=== PATIENT | female | born 1985 | race Caucasian/White ===

== ENCOUNTER 2018-11-04 06:47 | Inpatient (IN) | payer BC ==
[~2018-11-04] VITALS: Ht 170.2 cm; Wt 111.8 kg
[2018-11-04] VITALS (51 sets, daily range): BP systolic 85–148; BP diastolic 50–84; PULSE 61–129; TEMP 98.3–99.2
[~2018-11-04 06:47] MED LIST: COLACE 100100 MG/CAP PO; MOTRIN 600600 MG/TAB NG; PERCOCET 325 MG1 TA2 PO; PRENATAL VITAMI1 TA5 PO
--- NOTE | 2018-11-04 07:39 | NUR ---
[id number] PT ARRIVES AMB FOR INDCUTION OF LABOR. GOWN ON TAND TO BED. POC DISCUSSED AND ASSESSMENT STARTED. 0728 ASSESSMENT COMPLETED AND IV STARTED.
[2018-11-04 08:10] LABS: BASO # 0.1 (0.0-0.2); BASO % 0.5 % (0.0-2.0); EOS # 0.2 (0.0-0.7); GRAN # 7.8 (1.4-6.5); GRAN % 73.5 % (42.2-75.2); HEMOGLOBIN 11.6 g/dl (12.5-16.0); LYMPH # 1.7 (1.2-3.4); LYMPH % 15.7 % (20.0-51.0); MEAN CELL VOLUME 81 fl (80.0-100.0); MEAN CORPUSCULAR HEMOGLOBIN 27 pg (27.0-31.0); MEAN CORPUSCULAR HGB CONC 34 g/dl (33.0-37.0); MEAN PLATELET VOLUME 9.2 fl (7.4-10.4); MONO # 0.8 (0.1-0.6); MONO % 7.7 % (1.7-9.3); PLATELET COUNT 228 K/mm3 (130-400); RED BLOOD COUNT 4.25 M/mm3 (4.10-5.30); REDCELL DISTRIBUTION WIDTH-CV 13.5 % (11.5-14.5)
[2018-11-04 08:11] LABS: HEMATOCRIT 34.6 % (37.0-47.0)
--- NOTE | 2018-11-04 08:26 | NUR ---
0800 PITOCIN STARTED VIA PUMP AND PROTOCOL. PT VERBALIZES UNDERSTANDING OF PORCESS
--- NOTE | 2018-11-04 08:27 | NUR ---
0815 WATCHING TV WITH SPOUSE. DENIES NEEDS OR PAIN.
--- NOTE | 2018-11-04 09:03 | NUR ---
0834 DR FISHER HERE AND AROM PERFOMRED. PT TOERATED FAIRLY WELL.
--- NOTE | 2018-11-04 10:37 | NUR ---
1000 ASSSITED TO BR AND VOIDS CLEAR URINE. PITOCIN INCREASED TO 10 mU/MIN
--- NOTE | 2018-11-04 12:17 | NUR ---
1045 PT MORE UNCOMFORTABLE BUT DENIES NEEDS. JELLO SNACK PROVIDED.
--- NOTE | 2018-11-04 12:21 | NUR ---
1120 PT REQUESTING EPIDURAL PLACEMENT. SVE SHOWS CHANGE TO 3 CM AND CONTINUING TO LEAK CLEAR FLUID. 1125 ASSISTED TO BR TO VOID. LARD REFINER NOTIFIED OF PT REQUEST AND IVF WIDE OPEN FOR BOLUS.
--- NOTE | 2018-11-04 12:23 | NUR ---
1135 Susan PAULINO IN ROOM AND PT ALREADY POSITIONED FOR EPIDURAL. 1140 SINGLE SHOT GIVEN BY BOILER OR ENGINE OPERATOR. 1145 PT REPOSIIONED IN BED WITH PILLOW UNDER RT HIP. VERBALIZES UNDERSTANDING OF EXPECTIATIONS OF EPIDURAL.
--- NOTE | 2018-11-04 12:55 | NUR ---
1200 MORE COMFORTABLE WITH CONTRACTIONS.
--- NOTE | 2018-11-04 12:56 | NUR ---
1205 LIGHT DIMMED AND ENC TO SLEEP IF ABLE.
--- NOTE | 2018-11-04 12:58 | NUR ---
1225 PT COMPLAINS OF BEING LIGHTHEADED AND NAUSEATED. BP DOWN 1230 EPHEDRINE 1MG IVP GIVEN AND LR #2 HUNG AND CONTINUES WIDED OPEN.
--- NOTE | 2018-11-04 13:07 | NUR ---
1245 FEELING BETTER AND BP IMPROVED.
--- NOTE | 2018-11-04 14:01 | NUR ---
1305 MORALES PLACED EASILY AND TOLERATED WELL BY PT. 1315 PITOCIN INCREASED TO 16mU/MIN.
--- NOTE | 2018-11-04 15:09 | NUR ---
1430 DR FISHER IN TO EXAM PT. MINIMAL CHANGE FROM LAST EXAM. PEANUT BALL PLACED AND PT REPOSITIONED TO RL SIDE.
--- NOTE | 2018-11-04 15:11 | NUR ---
1450 EMESIS IN TRASH CAN. PITOCIN INCREASED TO 20mU/MIN.
--- NOTE | 2018-11-04 16:45 | NUR ---
1525 HAVING WHAT APPEARS TO BE LATE DECELS. REPOSITIONED IN BED WITH PEANUT BALL IN PLACE.
--- NOTE | 2018-11-04 16:50 | NUR ---
1535 LATES CONTINUE, PITOCIN OFF, O2 ON AND IVF INCREASED. 1545 DR FISHER AWARE OF FM STRIP AND INTERVENTIONS.
--- NOTE | 2018-11-04 17:03 | NUR ---
1615 FHR IMPROVMENT CONTINUES. O2 OFF, PITOCIN RESTARED AT 10mU.MIN PER VERBAL ORDER FROM DR FISHER.
--- NOTE | 2018-11-04 17:14 | NUR ---
1650 FEELING PRESSURE AND SVE SHOWS PT NOW 7CM BUT STILL ABOUT -2 STATION AND 50% EFFACED. 1700 DR FISHER NOTIFIED OF PT PROGRESS AND STATES IS HEADED TO HOSPITAL.
--- NOTE | 2018-11-04 18:41 | NUR ---
1736 SVE SHOWS PT NOW COMPLETE. DR FISHERNOTIFIED AND STATES WILL BE HERE IN ABOUT 10 MINUTES. PITOCIN STOPPED AND EPIDURAL HEMSTITCHER PUSHED.
--- NOTE | 2018-11-04 18:43 | NUR ---
174 DR FISHER ON UNIT. 1748 INTO ROOM. PT SET UP FOR DELIVERY. PERINEAL PREP WITH SOAPY WATER. 1750 PUSHING WITH CONTRACTIONS. 1754 DELIVERY OF FEMALE INFANT ON SECOND PUSHING EFFORT. SPONT RESP NOTED. INFANT TO MOM'S ABD AND DRIED WITH WARM BLANKETS. CORD CLAMPED AND FOB CUTS CORD. FURTHER DRIED AND THEN SKIN TO SKIN WITH MOM. 1758 SPONT DELIVERY OF INTACT PLACENTA. PITOCIN RATE INCREASED TO 333mU/MIN VIA PUMP. REPAIR OF SECOND DEGREE LAC STARTED BY . 1809 REPAIR COMPLETE AND PERINEUM WASHED AND ICE PACK APPLIED. BED TOGETHER AND WARM BLANKET PROVIDED. 1829 MOTRIN AND GRAPE JUICE PROVIDED
--- NOTE | 2018-11-04 20:45 | NUR ---
Pt able to lift and hold each leg off of bed for 5 seconds. IV disconnected. Pt repositioned to edge of bed. Epidural catheter removed, patient tolerated well. Tip intact, bandaid applied. Pt ambulated to bathroom with assist from spouse and this nurse. Pt able to void 200 mL. Pericare explained and performed. New clean gown applied. Pad and mesh panties on. Pt then transferred to room 219 in wheelchair with belongings.
[2018-11-05] VITALS (7 sets, daily range): BP systolic 95–131; BP diastolic 50–81; PULSE 94–109; TEMP 97.7–98.6
--- NOTE | 2018-11-05 06:30 | NUR ---
Rests in bed, alert. Denies any needs at this time.
--- NOTE | 2018-11-05 07:30 | NUR ---
Rests in bed, alert. Vital signs checked. Percocet 5/325 mg. one, ibuprofen 800 mg. p.o. given per request and as ordered. Baby in crib at bedside.
--- NOTE | 2018-11-05 08:30 | NUR ---
Rests in bed, alert. Denies any needs at this time.
[2018-11-05] MEDS ORDERED: PERCOCET 325 MG1 TA2 PO (09:33)
[2018-11-05] MEDS ORDERED: IBU600 MG PO (09:33)
--- NOTE | 2018-11-05 10:30 | NUR ---
States baby hasn't ate since 0400 this morning. Says I have tried. Assist patient with baby to breast feed. Latches on well.
--- NOTE | 2018-11-05 12:30 | NUR ---
Rests in bed, alert, family at bedside.
--- NOTE | 2018-11-05 14:00 | NUR ---
Percocet 5/325 mg., ibuprofen 600 mg given per request and as ordered.
--- NOTE | 2018-11-05 16:00 | NUR ---
Rests in bed, alert. baby, denies any needs at this time.
[2018-11-06 07:35] VITALS: BP 112/64; PULSE 95; TEMP 97.8
--- NOTE | 2018-11-06 09:33 | NUR ---
Initial visit; Mom thanked Hat Blocking Operator for offering congratulations and God's blessings for the of her daughter. Hat Blocking Operator thanked family for choosing [facility].
== END 2018-11-06 12:00 | disposition home or self-care (01) | DRG 807 ==
LOC: LDR 06:47 → OB 21:00
PROVIDERS: ADMIT Obstetrics & Gynecology
PROC: 10E0XZZ Delivery of Products of Conception, External Approach (ICD-10-PCS; principal; 2018-11-04)
PROC: 0KQM0ZZ Repair Perineum Muscle, Open Approach (ICD-10-PCS; 2018-11-04)
PROC: 10907ZC Drainage of Amniotic Fluid, Therapeutic from Products of Conception, Via Natural or Artificial Opening (ICD-10-PCS; 2018-11-04)
PROC: 3E033VJ Introduction of Other Hormone into Peripheral Vein, Percutaneous Approach (ICD-10-PCS; 2018-11-04)
DX: O70.1 Second degree perineal laceration during delivery (principal); Z37.0 Single live birth; Z3A.39 39 weeks gestation of pregnancy; O76 Abnormality in fetal heart rate and rhythm complicating labor and delivery; O99.214 Obesity complicating childbirth
CPT/HCPCS: J2590; J2795; J7120